=== PATIENT | female | born 1935 | race Asian ===

== ENCOUNTER 2023-10-29 16:31 | Emergency (ER) | payer BC, MEDICARE, OTHER ==
[~2023-10-29] VITALS: Ht 167.6 cm; Wt 49.9 kg
[2023-10-29 16:44] VITALS: TEMP 98.1
[2023-10-29] MEDS ORDERED: TDAP [DIPH/PERTUSSIS/TET] 0.5 ML VIAL IM ONE (17:11)
[2023-10-29] MEDS: TDAP [DIPH/PERTUSSIS/TET] 0.5 ML VIAL IM ONE (17:14)
[2023-10-29 18:44] VITALS: BP 135/80; O2SAT 99
== END 2023-10-29 18:45 | disposition home or self-care (01) ==
LOC: ER 16:39
DX: S01.01XA Laceration without foreign body of scalp, initial encounter (principal); Z90.49 Acquired absence of other specified parts of digestive tract; Z90.11 Acquired absence of right breast and nipple; W01.198A Fall on same level from slipping, tripping and stumbling with subsequent striking against other object, initial encounter; Y93.89 Activity, other specified; Y92.89 Other specified places as the place of occurrence of the external cause; Y99.8 Other external cause status
CPT/HCPCS: 70450-TC; 90715